=== PATIENT | male | born 1965 | race African-American/Black ===

== ENCOUNTER 2016-07-03 22:41 | Emergency (ER) | payer MEDICARE, OTHER ==
[~2016-07-03] VITALS: Ht 180.3 cm; Wt 135.0 kg
[~2016-07-03 22:41] MED LIST: DILA100C PO; METO50 PO; PHENO100 PO
[2016-07-03] MEDS ORDERED: SODIUM CHLOR 0.9% 1000 ML INJ 1,000 ML IV ONE (22:47)
[2016-07-03 22:48] VITALS: BP 159/91; PULSE 104; RESP 18; TEMP 98.1; O2SAT 96
[2016-07-03 22:54] VITALS: O2SAT 97
[2016-07-03] MEDS ORDERED: METOPROLOL TARTRATE (22:55)
[2016-07-03] MEDS ORDERED: DILANTIN (22:55)
[2016-07-03] MEDS ORDERED: LORazepam 2 MG/ML VIAL IVS ONE (23:00)
[2016-07-03] MEDS ORDERED: SODIUM CHLORIDE 0.9% FLUSH 5 ML FLUSH IVF PRN (23:00)
[2016-07-03 23:15] VITALS: BP 183/96; PULSE 101; RESP 20; O2SAT 97
[2016-07-03 23:28] LABS: AUTOMATED NEUTROPHIL # 4.9 TH/MM3 (1.8-7.7); BASOPHIL # 0.1 TH/MM3 (0-0.2); BASOPHIL % 0.7 % (0.0-2.0); EOSINOPHIL # 0.1 TH/MM3 (0-0.4); EOSINOPHIL % 0.9 % (0.0-4.0); HEMATOCRIT 42.1 % (39.0-51.0); HEMO FLAGS DIFF FINAL; LYMPH % 38.5 % (9.0-44.0); LYMPHOCYTE # 3.8 TH/MM3 (1.0-4.8); MEAN CELL VOLUME 76.2 FL (80.0-100.0); MEAN CORPUSCULAR HEMOGLOBIN 26.4 PG (27.0-34.0); MEAN CORPUSCULAR HGB CONC 34.6 % (32.0-36.0); MONO % 10.7 % (0.0-8.0); NEUT % 49.2 % (16.0-70.0); PLATELET COUNT 204 TH/MM3 (150-450); RED BLOOD COUNT 5.53 MIL/MM3 (4.50-5.90); RED CELL DISTRIBUTION WIDTH 14.5 % (11.6-17.2); WHITE BLOOD COUNT 9.9 TH/MM3 (4.0-11.0)
[2016-07-03 23:40] LABS: AMPHETAMINE, URINE NEG (NEG); BARBITURATES, URINE POS (NEG); COCAINE, URINE NEG (NEG)
[2016-07-03 23:48] LABS: ANION GAP 12 MEQ/L (5-15); BICARBONATE 20.6 MEQ/L (21.0-32.0); BLOOD UREA NITROGEN 10 MG/DL (7-18); CHLORIDE 102 MEQ/L (98-107); GLOMERULAR FILTRATION RATE 118 ML/MIN (>89); POTASSIUM 3.6 MEQ/L (3.5-5.1); SODIUM (NA) 135 MEQ/L (136-145)
--- NOTE | 2016-07-03 23:48 | RADRPT ---
EXAM DATE/TIME: 07/03/2016 23:39 [place] COMPARISON: CT BRAIN W/O CONTRAST, June 03, 2015, 21:11. INDICATIONS : Seizure. RADIATION DOSE: 50.30 CTDIvol (mGy) MEDICAL HISTORY : Hypertension. Seizures. SURGICAL HISTORY : None. ENCOUNTER: Initial ACUITY: 1 day PAIN SCALE: 0/10 LOCATION: cranial TECHNIQUE: Multiple contiguous axial images were obtained of the head. Using automated exposure control and adj ustment of the mA and/or kV according to patient size, radiation dose was kept as low as reasonably a chievable to obtain optimal diagnostic quality images. FINDINGS: CEREBRUM: The ventricles are normal. No evidence of midline shift, mass lesion, hemorrhage or acute infarction . No extra-axial fluid collections are seen. POSTERIOR FOSSA: The cerebellum and brainstem demonstrate no abnormality. The 4th ventricle is midline. The cerebell opontine angle is unremarkable. EXTRACRANIAL: Visualized sinuses are clear. SKULL: The calvaria is intact. No evidence of skull fracture. CONCLUSION: Stable noncontrast head CT. No acute finding is identified. Mann Pacheco MD on July 03, 2016 at 23:45 Board Certified Radiologist. This report was verified electronically.
[2016-07-04] MEDS ORDERED: FOSPHENYTOIN INJ 1,000 MGPE in SODIUM CHLORIDE 0.9% INJ 50 ML IV ONE (00:15)
[2016-07-04 00:55] VITALS: BP 172/74; PULSE 90; RESP 20; O2SAT 99
[2016-07-04 01:30] VITALS: BP 152/86; PULSE 102; RESP 20; O2SAT 95
--- NOTE | 2016-07-04 01:32 | PD ---
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 Patient here states that he bit his tongue and has history of seizure disorder. He denies specific complaints. He states he takes Dilantin and another medication and has been taking them like he should for his seizures. History is initially limited as patient can only give me basic details. PFSH Past Medical History Hx Anticoagulant Therapy: No Blood Disorders: No Cardiovascular Problems: No Chemotherapy: No Cerebrovascular Accident: No Diabetes: No Diminished Hearing: No Hypertension: Yes Respiratory: No Seizures: Yes Influenza Vaccination: No Past Surgical History Surgical History: No Previous Surgery Social History Alcohol Use: No Tobacco Use: No Substance Use: No Allergies-Medications (Allergen,Severity, Reaction): Coded Allergies: No Known Allergies (Verified , 07/03/16) Reported Meds & Prescriptions Reported Meds & Active Scripts Active Reported [Metoprolol Tartrate ] [Dilantin] Review of Systems ROS Limitations: Poor Historian Except as stated in HPI: all other systems reviewed are Neg Physical Exam Narrative GENERAL: Well-nourished, well-developed patient. SKIN: Warm and dry. HEAD: Normocephalic and hematoma noted to forehead EYES: No injection or drainage. ENT: No nasal drainage noted. Simple small laceration noted to right side of tongue NECK: Supple, trachea midline. Nontender in midline CARDIOVASCULAR: Regular rate and rhythm RESPIRATORY: Breath sounds equal bilaterally. No accessory muscle use. GASTROINTESTINAL: Abdomen soft, non-tender, nondistended. EXTREMITIES: No specific joint pain NEUROLOGICAL: Awake and alert to name. Motor and sensory grossly within normal limits. Normal speech. Data Data Last Documented VS Vital Signs Date Time Temp Pulse Resp B/P Pulse Ox O2 Delivery O2 Flow Rate FiO2 07/04/16 02:17 100 20 143/80 93 07/04/16 00:55 Nasal Cannula 07/03/16 23:15 3 07/03/16 22:48 98.1 Orders Complete Blood Count With Diff (07/03/16 22:47) Basic Metabolic Panel (Bmp) (07/03/16 22:47) Alcohol (Ethanol) (07/03/16 22:47) Phenytoin (Dilantin) (07/03/16 22:47) Drug Screen, Random Urine (07/03/16 22:47) Ct Brain W/O Iv Contrast(Rout) (07/03/16 ) Blood Glucose (07/03/16 22:47) Ecg Monitoring (07/03/16 22:47) Iv Access Insert/Monitor (07/03/16 22:47) Oximetry (07/03/16 22:47) Sodium Chlor 0.9% 1000 Ml Inj (Ns 1000 M (07/03/16 22:47) Sodium Chloride 0.9% Flush (Ns Flush) (07/03/16 23:00) Lorazepam Inj (Ativan Inj) (07/03/16 23:00) Phenobarbital (07/03/16 23:58) Fosphenytoin Inj (Cerebyx Inj) (07/04/16 00:15) Labs Laboratory Tests Test 07/03/16 23:20 White Blood Count 9.9 TH/MM3 Red Blood Count 5.53 MIL/MM3 Hemoglobin 14.6 GM/DL Hematocrit 42.1 % Mean Corpuscular Volume 76.2 FL Mean Corpuscular Hemoglobin 26.4 PG Mean Corpuscular Hemoglobin 34.6 % Concent Red Cell Distribution Width 14.5 % Platelet Count 204 TH/MM3 Mean Platelet Volume 8.2 FL Neutrophils (%) (Auto) 49.2 % Lymphocytes (%) (Auto) 38.5 % Monocytes (%) (Auto) 10.7 % Eosinophils (%) (Auto) 0.9 % Basophils (%) (Auto) 0.7 % Neutrophils # (Auto) 4.9 TH/MM3 Lymphocytes # (Auto) 3.8 TH/MM3 Monocytes # (Auto) 1.1 TH/MM3 Eosinophils # (Auto) 0.1 TH/MM3 Basophils # (Auto) 0.1 TH/MM3 CBC Comment DIFF FINAL Differential Comment Sodium Level 135 MEQ/L Potassium Level 3.6 MEQ/L Chloride Level 102 MEQ/L Carbon Dioxide Level 20.6 MEQ/L Anion Gap 12 MEQ/L Blood Urea Nitrogen 10 MG/DL Creatinine 0.84 MG/DL Estimat Glomerular Filtration 118 ML/MIN Rate Random Glucose 109 MG/DL Calcium Level 8.3 MG/DL Urine Opiates Screen NEG Urine Barbiturates Screen POS Phenytoin (Dilantin) Level 3.8 MCG/ML Urine Amphetamines Screen NEG Urine Benzodiazepines Screen NEG Urine Cocaine Screen NEG Urine Cannabinoids Screen NEG Ethyl Alcohol Level LESS THAN 3 MG/DL Phenobarbital Level 14.9 MCG/ML MDM Medical Decision Making Medical Screen Exam Complete: Yes Emergency Medical Condition: Yes Medical Record Reviewed: Yes (past history confirmed) Interpretation(s) CBC & BMP Diagram 07/03/16 23:20 Dilantin level is low ct brain no acute Differential Diagnosis Subtherapeutic seizure medication, hyponatremia, intercranial, hypoglycemia Narrative Course Will check blood work, CT brain and reevaluate after one of Ativan to decrease seizure threshold Cerebyx level is low will dose with 1 g of Cerebyx and monitor 0013 before patient could get Cerebyx he had a generalized tonic-clonic seizure here no seizure here after loaded with cerebyx, Patient denies any new complaints and states that they are feeling better, all questions answered. Patient knows that follow up is incumbent on them and to return to the emergency room immediately if new or worsening symptoms develop. Patient given strict return precautions, vitals reviewed and are normal, agrees to further workup as an outpatient. Diagnosis Primary Impression: Seizure Referrals: Neurologist call for appointment tuesday Patient Instructions: General Instructions Additional Instructions: take your seizure medication as directed, your seizure levels were low and you were given extra in the ER, return as needed Med/Other Pt SpecificInfo: No Change to Meds Disposition: 01 DISCHARGE HOME Condition: Stable Lian Salinas MD Jul 04, 2016 01:32
[2016-07-04 02:17] VITALS: BP 143/80
== END 2016-07-04 04:37 | disposition home or self-care (01) ==
LOC: NEPC 22:41
DX: G40.909 Epilepsy, unspecified, not intractable, without status epilepticus (principal); I10 Essential (primary) hypertension
CPT/HCPCS: 70450; 80048; 80184; 80185; 80307; 80320; 85025; 96361; 96365; 96375; 99284; J2060; J7030; Q2009

== ENCOUNTER 2016-07-18 11:22 | Inpatient (IN) | payer MEDICARE, OTHER ==
[~2016-07-18] VITALS: Ht 172.7 cm; Wt 138.1 kg
[~2016-07-18 11:22] MED LIST changes: -DILA100C PO; +DILANTIN; -METO50 PO; +METOPROLOL TARTRATE; -PHENO100 PO
[2016-07-18 11:27] VITALS: BP 143/85; PULSE 95; RESP 18; TEMP 98.7; O2SAT 93
[2016-07-18] MEDS ORDERED: DILANTIN (11:32)
[2016-07-18] MEDS ORDERED: METOPROLOL TARTRATE (11:32)
[2016-07-18] MEDS ORDERED: SODIUM CHLOR 0.9% 1000 ML INJ 1,000 ML IV ONE (11:44)
[2016-07-18] MEDS ORDERED: SODIUM CHLORIDE 0.9% FLUSH 5 ML FLUSH IVF PRN ×2 (11:45→14:30)
[2016-07-18 11:46] VITALS: O2SAT 95
--- NOTE | 2016-07-18 11:53 | PD ---
HPI Chief Complaint: Seizure Time Seen by Provider: 11:38 Travel History International Travel<30 days: No Contact w/Intl Traveler<30days: No Traveled to known affect area: No History of Present Illness HPI Patient is a 50-year-old male with history of grand mal seizures currently taking Dilantin for seizures, presents to emergency room after he had a witnessed seizure at [employer] today. EMS unsure how long seizure lasted or whether patient had any trauma to his head. Patient was post ictal prior on route to the emergency room, patient reports that he has been compliant with his medications. Patient reports that he last had a seizure about 3-4 months ago and last saw his neurologist about 5 months ago. Patient reports that when he last saw his neurologist, there is no medication changes. Patient reports that he feels fine now, denies headache or dizziness at this time. Patient denies chest pain or shortness of breath. Patient with no complaints. PFSH Past Medical History Hx Anticoagulant Therapy: No Blood Disorders: No Cardiovascular Problems: No Chemotherapy: No Cerebrovascular Accident: No Diabetes: No Diminished Hearing: No Hypertension: Yes Respiratory: No Seizures: Yes Influenza Vaccination: No Past Surgical History Surgical History: No Previous Surgery Family History Family History: Negative Social History Alcohol Use: No Tobacco Use: No Substance Use: No Allergies-Medications (Allergen,Severity, Reaction): Coded Allergies: No Known Allergies (Verified , 07/18/16) Reported Meds & Prescriptions Reported Meds & Active Scripts Active Reported [Metoprolol Tartrate ] [Dilantin] Review of Systems General / Constitutional: No: Fever Eyes: No: Visual changes HENT: No: Headaches Cardiovascular: No: Chest Pain or Discomfort Respiratory: No: Shortness of Breath Gastrointestinal: No: Abdominal Pain Genitourinary: No: Dysuria Musculoskeletal: No: Pain Skin: No Rash Neurologic: Positive: Seizures, No: Weakness Psychiatric: No: Depression Endocrine: No: Polydipsia Hematologic/Lymphatic: No: Easy Bruising Physical Exam Narrative GENERAL: No acute distress, nontoxic SKIN: Warm and dry. HEAD: Atraumatic. Normocephalic. EYES: Pupils equal and round. No scleral icterus. No injection or drainage. ENT: No nasal bleeding or discharge. Mucous membranes pink and moist. NECK: Trachea midline. No JVD. CARDIOVASCULAR: Regular rate and rhythm. No murmur appreciated. RESPIRATORY: No accessory muscle use. Clear to auscultation. Breath sounds equal bilaterally. GASTROINTESTINAL: Abdomen soft, non-tender, nondistended. Hepatic and splenic margins not palpable. MUSCULOSKELETAL: No obvious deformities. No clubbing. No cyanosis. No edema. NEUROLOGICAL: Awake and alert. No obvious cranial nerve deficits. Motor grossly within normal limits. Normal speech. Cranial nerves to 12 grossly intact without any obvious neurological deficits PSYCHIATRIC: Appropriate mood and affect; insight and judgment normal. Data Data Last Documented VS Vital Signs Date Time Temp Pulse Resp B/P Pulse Ox O2 Delivery O2 Flow Rate FiO2 07/18/16 13:13 100 16 144/88 100 Partial Rebreather 07/18/16 13:12 15 07/18/16 11:27 98.7 Orders Electrocardiogram (07/18/16 ) Complete Blood Count With Diff (07/18/16 11:44) Phenytoin (Dilantin) (07/18/16 11:44) Drug Screen, Random Urine (07/18/16 11:44) Ecg Monitoring (07/18/16 11:44) Iv Access Insert/Monitor (07/18/16 11:44) Oximetry (07/18/16 11:44) Comprehensive Metabolic Panel (07/18/16 11:44) Sodium Chlor 0.9% 1000 Ml Inj (Ns 1000 M (07/18/16 11:44) Sodium Chloride 0.9% Flush (Ns Flush) (07/18/16 11:45) Ua Includes Microscopic (07/18/16 11:44) Phenytoin Inj (Dilantin Inj) (07/18/16 12:45) Lorazepam Inj (Ativan Inj) (07/18/16 12:58) Lorazepam Inj (Ativan Inj) (07/18/16 13:15) Labs Laboratory Tests Test 07/18/16 07/18/16 11:49 12:37 White Blood Count 7.8 TH/MM3 Red Blood Count 5.40 MIL/MM3 Hemoglobin 14.2 GM/DL Hematocrit 40.7 % Mean Corpuscular Volume 75.3 FL Mean Corpuscular Hemoglobin 26.3 PG Mean Corpuscular Hemoglobin 34.9 % Concent Red Cell Distribution Width 14.5 % Platelet Count 188 TH/MM3 Mean Platelet Volume 7.8 FL Neutrophils (%) (Auto) 70.2 % Lymphocytes (%) (Auto) 18.4 % Monocytes (%) (Auto) 8.6 % Eosinophils (%) (Auto) 2.2 % Basophils (%) (Auto) 0.6 % Neutrophils # (Auto) 5.5 TH/MM3 Lymphocytes # (Auto) 1.4 TH/MM3 Monocytes # (Auto) 0.7 TH/MM3 Eosinophils # (Auto) 0.2 TH/MM3 Basophils # (Auto) 0.0 TH/MM3 CBC Comment DIFF FINAL Differential Comment Sodium Level 138 MEQ/L Potassium Level 3.4 MEQ/L Chloride Level 104 MEQ/L Carbon Dioxide Level 20.6 MEQ/L Anion Gap 13 MEQ/L Blood Urea Nitrogen 9 MG/DL Creatinine 0.91 MG/DL Estimat Glomerular Filtration 108 ML/MIN Rate Random Glucose 113 MG/DL Calcium Level 8.3 MG/DL Total Bilirubin 0.3 MG/DL Aspartate Amino Transf 35 U/L (AST/SGOT) Alanine Aminotransferase 37 U/L (ALT/SGPT) Alkaline Phosphatase 138 U/L Total Protein 8.9 GM/DL Albumin 3.4 GM/DL Phenytoin (Dilantin) Level 5.8 MCG/ML Urine Color LIGHT-YELLOW Urine Turbidity CLEAR Urine pH 6.5 Urine Specific [place] 1.011 Urine Protein 30 mg/dL Urine Glucose (UA) NEG mg/dL Urine Ketones NEG mg/dL Urine Occult Blood TRACE Urine Nitrite NEG Urine Bilirubin NEG Urine Urobilinogen LESS THAN 2.0 MG/DL Urine Leukocyte Esterase NEG Urine RBC LESS THAN 1 /hpf Urine WBC LESS THAN 1 /hpf Urine Squamous Epithelial <1 /hpf Cells Urine Transitional Epithelial <1 /hpf Cells Urine Mucus FEW /lpf MDM Medical Decision Making Medical Screen Exam Complete: Yes Emergency Medical Condition: Yes Interpretation(s) EKG at 1136: Normal sinus rhythm at 80 beats for minute, QT/QTC 365/411, nonspecific T-wave changes Vital Signs Date Time Temp Pulse Resp B/P Pulse Ox O2 Delivery O2 Flow Rate FiO2 07/18/16 11:27 98.7 95 18 143/85 93 Differential Diagnosis Recurrent seizures, medication noncompliance, electrolyte abnormalities, ACS, arrhythmia Narrative Course Patient is a 50-year-old male with history of grand mal seizures, presents to emergency room with complaints of recurrent seizures. Patient is currently on Dilantin for seizures, reports last seizure was 3-4 months ago. Patient currently with no complaints, had a witnessed seizure while at [employer] today. Plan to monitor patient, obtain labs and Dilantin level. 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 Patient does have history of medication noncompliance, if the dilantin level is low, we will bolus him with Dilantin. Was called to room as patient began to have a grand mal seizure, seizure lasted for less than 1 minute, 2mg of IV ativan given to patient, patient postictal. patient with second seizure today, will require observation case reviewed with dr loya who accepts pt to service Diagnosis Primary Impression: Recurrent seizures Admitting Information Admitting Physician Requests: Observation Macie Hidalgo DO Jul 18, 2016 11:53
[2016-07-18 12:01] LABS: AUTOMATED NEUTROPHIL # 5.5 TH/MM3 (1.8-7.7); BASOPHIL % 0.6 % (0.0-2.0); EOSINOPHIL # 0.2 TH/MM3 (0-0.4); EOSINOPHIL % 2.2 % (0.0-4.0); HEMATOCRIT 40.7 % (39.0-51.0); HEMO FLAGS DIFF FINAL; LYMPH % 18.4 % (9.0-44.0); LYMPHOCYTE # 1.4 TH/MM3 (1.0-4.8); MEAN CELL VOLUME 75.3 FL (80.0-100.0); MEAN CORPUSCULAR HEMOGLOBIN 26.3 PG (27.0-34.0); MEAN CORPUSCULAR HGB CONC 34.9 % (32.0-36.0); MONO % 8.6 % (0.0-8.0); NEUT % 70.2 % (16.0-70.0); PLATELET COUNT 188 TH/MM3 (150-450); RED CELL DISTRIBUTION WIDTH 14.5 % (11.6-17.2); WHITE BLOOD COUNT 7.8 TH/MM3 (4.0-11.0)
[2016-07-18 12:17] LABS: ALT (GPT) 37 U/L (12-78); ANION GAP 13 MEQ/L (5-15); AST (GOT) 35 U/L (15-37); BICARBONATE 20.6 MEQ/L (21.0-32.0); BLOOD UREA NITROGEN 9 MG/DL (7-18); CHLORIDE 104 MEQ/L (98-107); GLOMERULAR FILTRATION RATE 108 ML/MIN (>89); POTASSIUM 3.4 MEQ/L (3.5-5.1); SODIUM (NA) 138 MEQ/L (136-145)
[2016-07-18 12:20] LABS: ALKALINE PHOSPHATASE 138 U/L (45-117); TOTAL BILIRUBIN ADULT 0.3 MG/DL (0.2-1.0)
[2016-07-18] MEDS ORDERED: PHENYTOIN INJ 1,000 MG in SODIUM CHLORIDE 0.9% INJ 100 ML IV ONE (12:45)
[2016-07-18 12:54] LABS: BLOOD, URINE TRACE (NEG); GLUCOSE,URINE NEG (NEG); KETONE, URINE NEG (NEG); MUCUS URINE FEW /lpf (OCC); NITRITE,URINE NEG (NEG); PH, URINE 6.5 (5.0-8.5); SQUAMOUS EPITHELIAL CELL URINE <1 /hpf (0-5); TRANSITIONAL EPI CELLS, URINE <1 /hpf; URINE COLOR LIGHT-YELLOW (YELLW/STRAW)
[2016-07-18] MEDS ORDERED: LORazepam 2 MG/ML VIAL ONE (12:58)
[2016-07-18 13:13] VITALS: BP 144/88; PULSE 100; RESP 16; O2SAT 100
[2016-07-18] MEDS ORDERED: LORazepam 2 MG/ML VIAL IV PUSH ONE (13:15)
[2016-07-18 14:28] LABS: AMPHETAMINE, URINE NEG (NEG); BARBITURATES, URINE POS (NEG); COCAINE, URINE NEG (NEG)
[2016-07-18] MEDS ORDERED: LORazepam 2 MG/ML VIAL IV PRN (14:30)
[2016-07-18] MEDS ORDERED: ACETAMINOPHEN 325 MG TAB PO PRN (14:30)
--- NOTE | 2016-07-18 14:55 | HHI.HP ---
[facility] Primary Care Physician No Primary Care Physician Admission Diagnosis Recurrent Seizure Diagnoses: Chief Complaint: recurrent seizure Travel History International Travel<30 Days: No Contact w/Intl Traveler <30 Da: No Traveled to Known Affected Are: No History of Present Illness 50-year-old male with PMH of hypertension, grand mal seizures on Dilantin/ Phenobarbital, and hx of status epilepticus requiring intubation, presents to the ER after a witnessed seizure while at [employer] today 07/18. It is unknown how long the seizure lasted. The patient was post ictal en route to the ER however AAOx4 upon arrival. He reports urinary incontinence and tongue biting. He last visited the ER on 07/03/16 for seizure x2, head CT was unremarkable at that time, he was loaded with IV Cerebyx and discharged home. The patient reports compliance with his Dilantin however upon arrival Dilantin level subtherapeutic at 5.8. He does admit to running out of his Phenobarbital 2-3 days ago; states a prescription was called in but he has not picked it up yet. He last saw his neurologist 5months ago, he is unsure who his neurologist is (female, located on [facility]). The patient was initially feeling back to normal in the ER however then had another grand mal seizure witnessed by ER MD, lasted less than 1 minute, s/p 2mg IV Ativan. The patient is again post ictal, drowsy, falls asleep throughout exam however is oriented to person, place, and states the date is 07/16/16. With intractable seizures and subtherapeutic levels, ER MD requested admission. The patient denies any recent fevers/chills, headaches, lightheadedness, dizziness, chest pains, palpitations, shortness of breath, abdominal or urinary complaints. Review of Systems Constitutional: DENIES: Diaphoretic episodes, Fever, Chills, Dizziness Endocrine: DENIES: Polydipsia, Polyuria, Polyphagia Eyes: DENIES: Blurred vision, Vision loss, Double Vision Ears, nose, mouth, throat: DENIES: Throat pain, Hoarseness, Odynophagia Respiratory: DENIES: Cough, Shortness of breath Cardiovascular: DENIES: Chest pain, Palpitations, Dyspnea on Exertion Gastrointestinal: DENIES: Abdominal pain, Diarrhea, Nausea, Vomiting Genitourinary: COMPLAINS OF: Urinary incontinence, DENIES: Urgency, Dysuria Musculoskeletal: DENIES: Back pain, Neck pain Integumentary: DENIES: Pruritus, Rash Hematologic/lymphatic: DENIES: Bruising, Lymphadenopathy Immunologic/allergic: DENIES: Eczema, Urticaria Neurologic: COMPLAINS OF: Seizures, DENIES: Abnormal gait, Headache, Localized weakness, Paresthesias Psychiatric: DENIES: Anxiety, Depression Past Family Social History Past Medical History hypertension grand mal seizures hx of status epilepticus requiring intubation Past Surgical History Denies any prior surgeries. Reported Medications Metoprolol (unknown dose) Dilantin (patient believes 100mg bid) Phenobarbital (patient also believes this is 100mg bid) Asked RN to update med rec prior to restarting home meds. Allergies: Coded Allergies: No Known Allergies (Verified , 07/18/16) Active Ordered Medications Current Medications Medications (Trade) Dose Ordered Sig/Noni Route Start Time Stop Time Status Last Admin (NS Flush) 2 ml UNSCH PRN IVF 07/18/16 14:30 (NS Flush) 2 ml BID IVF 07/18/16 21:00 (Ativan Inj) 2 mg Q10M PRN IV 07/18/16 14:30 (Tylenol) 650 mg Q4H PRN PO 07/18/16 14:30 Phenytoin Sodium 100 mg 100 mg Q8HR IV 07/18/16 22:00 (KCl 20 Meq Premix Inj) 100 ml @ 50 mls/hr BOLUS ONCE IV 07/18/16 15:00 07/18/16 16:59 07/18/16 15:04 (Luminal Inj) 130 mg ONCE ONCE IM 07/18/16 15:30 07/18/16 15:31 UNV Family History Both parents are , unknown medical problems Denies any family history of seizures Social History Smoked tobacco 1PPD for 10+ years, quit in his late 30s Denies any alcohol or illicit drug use Physical Exam Vital Signs Vital Signs Date Time Temp Pulse Resp B/P Pulse Ox O2 Delivery O2 Flow Rate FiO2 07/18/16 13:13 100 16 144/88 100 Partial Rebreather 07/18/16 13:12 100 Non-Rebreather 15 07/18/16 11:46 95 Nasal Cannula 2 07/18/16 11:27 98.7 95 18 143/85 93 Physical Exam GENERAL: Well-nourished, well-developed obese AA male patient in NAD. Drowsy, however easily awakens to voice, is AAOx4. SKIN: Warm and dry. No rash. HEAD: Normocephalic. Atraumatic. EYES: Pupils equal and round. No scleral icterus. No injection or drainage. ENT: No nasal bleeding or discharge. Mucous membranes pink and moist. Tongue with bite eduardo/abrasion/ecchymosis on both sides, no active bleeding. NECK: Supple. Trachea midline. CARDIOVASCULAR: Regular rate and rhythm. S1, S2 noted. No murmur appreciated. RESPIRATORY: No accessory muscle use. Clear to auscultation. Breath sounds equal bilaterally. GASTROINTESTINAL: Abdomen soft, non-tender, nondistended. Normoactive bowel sounds x4. MUSCULOSKELETAL: No obvious deformities. Extremities without clubbing, cyanosis , or edema. NEUROLOGICAL: Awake and alert. No obvious cranial nerve deficits. Motor grossly within normal limits. Moves all extremities spontaneously. Normal speech. PSYCHIATRIC: Appropriate mood and affect; insight and judgment normal. Laboratory Laboratory Tests Test 07/18/16 07/18/16 11:49 12:37 White Blood Count 7.8 Red Blood Count 5.40 Hemoglobin 14.2 Hematocrit 40.7 Mean Corpuscular Volume 75.3 Mean Corpuscular Hemoglobin 26.3 Mean Corpuscular Hemoglobin 34.9 Concent Red Cell Distribution Width 14.5 Platelet Count 188 Mean Platelet Volume 7.8 Neutrophils (%) (Auto) 70.2 Lymphocytes (%) (Auto) 18.4 Monocytes (%) (Auto) 8.6 Eosinophils (%) (Auto) 2.2 Basophils (%) (Auto) 0.6 Neutrophils # (Auto) 5.5 Lymphocytes # (Auto) 1.4 Monocytes # (Auto) 0.7 Eosinophils # (Auto) 0.2 Basophils # (Auto) 0.0 CBC Comment DIFF FINAL Differential Comment Sodium Level 138 Potassium Level 3.4 Chloride Level 104 Carbon Dioxide Level 20.6 Anion Gap 13 Blood Urea Nitrogen 9 Creatinine 0.91 Estimat Glomerular Filtration 108 Rate Random Glucose 113 Calcium Level 8.3 Total Bilirubin 0.3 Aspartate Amino Transf 35 (AST/SGOT) Alanine Aminotransferase 37 (ALT/SGPT) Alkaline Phosphatase 138 Total Protein 8.9 Albumin 3.4 Phenytoin (Dilantin) Level 5.8 Urine Color LIGHT-YELLOW Urine Turbidity CLEAR Urine pH 6.5 Urine Specific [place] 1.011 Urine Protein 30 Urine Glucose (UA) NEG Urine Ketones NEG Urine Occult Blood TRACE Urine Nitrite NEG Urine Bilirubin NEG Urine Urobilinogen LESS THAN 2.0 Urine Leukocyte Esterase NEG Urine RBC LESS THAN 1 Urine WBC LESS THAN 1 Urine Squamous Epithelial <1 Cells Urine Transitional Epithelial <1 Cells Urine Mucus FEW Urine Opiates Screen NEG Urine Barbiturates Screen POS Urine Amphetamines Screen NEG Urine Benzodiazepines Screen NEG Urine Cocaine Screen NEG Urine Cannabinoids Screen NEG Result Diagram: 07/18/16 1149 07/18/16 1149 Imaging 07/03/16 - Head CT images reviewed, unremarkable. Assessment and Plan Problem List: (1) Recurrent seizures ICD Code: G40.909 Status: Acute Assessment and Plan 50-year-old male with PMH of hypertension, grand mal seizures on Dilantin/ Phenobarbital, and hx of status epilepticus requiring intubation, presents to the ER after a witnessed seizure while at [employer] today 07/18 and again another grand mal seizure witnessed in the ER. Recurrent Grand Mal Seizures: Failed Outpatient, seen in the ER 07/03/16 for seizure x2, loaded with IV Cerebyx, Head CT unremarkable at that time, he was discharged home. Recurrent seizure likely secondary to subtherapeutic Dilantin level 5.8 and ran out of phenobarbital 2-3days ago. Started on IV Dilantin 100mg q8h. Loaded with phenobarbital 130mg IM x1. IV Ativan 2mg prn seizure. Seizure precautions. Repeat dilantin and phenobarbital level in the am. Outpatient f/up with neurologist. Hypertension: chronic, on metoprolol however dose unknown, asked RN to update med rec. Monitor BP, adjust antihypertensives as needed. Hypokalemia: K 3.4, given IV KCl 20meq replacement. Check mag. Repeat BMP tomorrow. DVT Prophylaxis: teds/SCDs Written by Deyanira Zaldivar, acting as scribe for Dr. Gardner on 07/18/16 at 15: 25. The documentation accurately reflects the work performed [id number] by me on at 15:25 Code Status Full Code Discussed Condition With Patient, ER Deyanira Ortiz PA-C Jul 18, 2016 14:55 Minh Gardner MD Jul 18, 2016 18:32
[2016-07-18] MEDS ORDERED: POTASSIUM CHLOR 20 MEQ PREMIX 100 ML IV ONE (15:00)
[2016-07-18] MEDS ORDERED: METO50TA PO (15:30)
[2016-07-18] MEDS ORDERED: DILA100C PO (15:30)
[2016-07-18] MEDS ORDERED: PHENO60 PO (15:30)
[2016-07-18] MEDS ORDERED: PHENobarbital SOD 130 MG/ML VIAL IM ONE (15:30)
[2016-07-18 16:36] VITALS: BP 118/65; PULSE 74; RESP 20; O2SAT 100
[2016-07-18 17:00] VITALS: BP_SYST 133; BP_SYST 171; BP_DIAS 115; BP_DIAS 84; PULSE 86; PULSE 88; RESP 18; TEMP 98.7; TEMP 99; O2SAT 98
[2016-07-18] MEDS ORDERED: MAGNESIUM SULFATE 1 GM PREMIX 100 ML IV ONE (18:00)
[2016-07-18] MEDS ORDERED: PILL SPLITTER OTHER PRN (18:15)
[2016-07-18 20:00] VITALS: BP 188/89; PULSE 86; RESP 22; TEMP 98.3; O2SAT 96
[2016-07-18] MEDS: METOPROLOL TARTRATE 50 MG TAB PO SCH (20:03)
[2016-07-18] MEDS ORDERED: SODIUM CHLORIDE 0.9% FLUSH 5 ML FLUSH IVF SCH (21:00)
[2016-07-18] MEDS: PHENYTOIN INJ 100 MG/2 ML VIAL IV SCH (22:20)
[2016-07-19] VITALS: BP_SYST 125; BP_SYST 140; BP_DIAS 60; BP_DIAS 65; PULSE 72; PULSE 87; RESP 20; TEMP 100.3; TEMP 96; O2SAT 94; O2SAT 98
[2016-07-19 04:00] VITALS: BP 153/86; PULSE 78; RESP 20; TEMP 98.8; O2SAT 95
[2016-07-19] MEDS: PHENYTOIN INJ 100 MG/2 ML VIAL IV SCH ×2 (05:49→13:47)
[2016-07-19 07:00] VITALS: PULSE 75
[2016-07-19 08:00] VITALS: BP 122/77; PULSE 71; RESP 19; TEMP 98.6; O2SAT 97
[2016-07-19 08:18] LABS: ALKALINE PHOSPHATASE 128 U/L (45-117); ALT (GPT) 32 U/L (12-78); ANION GAP 8 MEQ/L (5-15); AST (GOT) 33 U/L (15-37); BICARBONATE 24.8 MEQ/L (21.0-32.0); BLOOD UREA NITROGEN 5 MG/DL (7-18); CHLORIDE 104 MEQ/L (98-107); GLOMERULAR FILTRATION RATE 156 ML/MIN (>89); PHENOBARBITAL 9.3 MCG/ML (15.0-40.0); POTASSIUM 3.3 MEQ/L (3.5-5.1); SODIUM (NA) 137 MEQ/L (136-145); TOTAL BILIRUBIN ADULT 0.6 MG/DL (0.2-1.0)
[2016-07-19] MEDS: METOPROLOL TARTRATE 50 MG TAB PO SCH (09:59)
[2016-07-19 12:00] VITALS: BP 112/56; PULSE 72; RESP 21; TEMP 97.7; O2SAT 95
[2016-07-19] MEDS ORDERED: PHENobarbital SOD 130 MG/ML VIAL IM ONE (13:28)
[2016-07-19] MEDS ORDERED: POTASSIUM CHLORIDE 10 MEQ CONTROLLED RELEASE TAB PO ONE (13:30)
--- NOTE | 2016-07-19 13:31 | HHI.DS ---
Discharge Summary Admission Date Jul 18, 2016 at 14:43 Discharge Date: Jul 19, 2016 Admitting Diagnosis Recurrent Seizure (1) Recurrent seizures ICD Code: G40.909 Diagnosis: Principal Procedures none Brief History - From Admission 50-year-old male with PMH of hypertension, grand mal seizures on Dilantin/ Phenobarbital, and hx of status epilepticus requiring intubation, presents to the ER after a witnessed seizure while at [facility] today 07/18. It is unknown how long the seizure lasted. The patient was post ictal en route to the ER however AAOx4 upon arrival. He reports urinary incontinence and tongue biting. He last visited the ER on 07/03/16 for seizure x2, head CT was unremarkable at that time, he was loaded with IV Cerebyx and discharged home. The patient reports compliance with his Dilantin however upon arrival Dilantin level subtherapeutic at 5.8. He does admit to running out of his Phenobarbital 2-3 days ago; states a prescription was called in but he has not picked it up yet. He last saw his neurologist 5months ago, he is unsure who his neurologist is (female, located on [facility]). The patient was initially feeling back to normal in the ER however then had another grand mal seizure witnessed by ER MD, lasted less than 1 minute, s/p 2mg IV Ativan. The patient is again post ictal, drowsy, falls asleep throughout exam however is oriented to person, place, and states the date is 07/16/16. With intractable seizures and subtherapeutic levels, ER MD requested admission. The patient denies any recent fevers/chills, headaches, lightheadedness, dizziness, chest pains, palpitations, shortness of breath, abdominal or urinary complaints. CBC/BMP: 07/18/16 1149 07/19/16 0718 Significant Findings Laboratory Tests Test 07/18/16 07/18/16 07/19/16 11:49 12:37 07:18 Mean Corpuscular Volume 75.3 FL (80.0-100.0) Mean Corpuscular Hemoglobin 26.3 PG (27.0-34.0) Neutrophils (%) (Auto) 70.2 % (16.0-70.0) Monocytes (%) (Auto) 8.6 % (0.0-8.0) Potassium Level 3.4 MEQ/L 3.3 MEQ/L (3.5-5.1) (3.5-5.1) Carbon Dioxide Level 20.6 MEQ/L (21.0-32.0) Random Glucose 113 MG/DL (74-106) Calcium Level 8.3 MG/DL 8.4 MG/DL (8.5-10.1) (8.5-10.1) Alkaline Phosphatase 138 U/L 128 U/L (45-117) (45-117) Total Protein 8.9 GM/DL 8.5 GM/DL (6.4-8.2) (6.4-8.2) Phenytoin (Dilantin) Level 5.8 MCG/ML (10.0-20.0) Urine Protein 30 mg/dL (NEG-TRACE) Urine Occult Blood TRACE (NEG) Urine Mucus FEW /lpf (OCC) Urine Barbiturates Screen POS (NEG) Blood Urea Nitrogen 5 MG/DL (7-18) Albumin 3.1 GM/DL (3.4-5.0) Phenobarbital Level 9.3 MCG/ML (15.0-40.0) PE at Discharge Not in distress, well-nourished, looks stated age PERRL, pink conjunctiva without injection, anicteric Nose without bleeding, airway patent, oropharynx clear Supple neck, no masses or thyromegaly, trachea midline Normal rate and regular rhythm, no murmurs gallops or rubs appreciated. Clear to auscultation and symmetric bilaterally, normal respiratory effort. Normal bowel sounds, soft, obese, non-tender, nondistended, no guarding. Extremities without clubbing, cyanosis, or edema. No rash of generalized distribution. Skin is warm and dry. AAO x3, no cranial nerve deficits, moves all 4 extremities, no focal neurologic deficits, no meningeal signs. Normal mood, appropriate affect Pt update on day of discharge No overnight events, no seizure episodes, low-grade temperature elevation but no fever. No cough, chills, urinary symptoms or diarrhea. No neck pain or headache. he wants to go home. He still says now that he is more lucid that he hasn't taken his phenobarbital for several days because he ran out of it. Hospital Course 50-year-old male with PMH of hypertension, grand mal seizures on Dilantin/ Phenobarbital, and hx of status epilepticus requiring intubation, presents to the ER after a witnessed seizure while at [facility] today 07/18 and again another grand mal seizure witnessed in the ER. Patient was loaded with Cerebyx and phenobarbital. He was restarted on his home dose of Dilantin and phenobarbital. No further seizure episodes. Seizure secondary to noncompliance , patient hasn't had his phenobarbital for 3 days because he ran out of it. Patient otherwise is stable. After loading with phenobarbital, patient's levels are still low, will give another loading dose prior to discharge. Dilantin level is therapeutic. He will be discharged on his home dose of antiseizure medications to follow-up with his primary care physician in one week. Pt Condition on Discharge: Good Discharge Disposition: Discharge Home Discharge Time: <= 30 minutes Discharge Instructions DIET: Follow Instructions for: As Tolerated, No Restrictions Activities you can perform: Regular-No Restrictions Follow up Referrals: PCP Follow-up - 1 Week Continued Medications: Metoprolol Tartrate (Metoprolol Tartrate) 50 Mg Tab 50 MG PO BID #60 Ref 0 TAB Phenobarbital (Phenobarbital) 64.8 Mg Tab 97.2 MG PO Q8HR Control Seizures #60 Ref 0 TAB Phenytoin Extended (Dilantin) 100 Mg Cap 100 MG PO Q8HR #90 Ref 0 CAP Minh Gardner MD Jul 19, 2016 13:30
--- NOTE | 2016-07-19 14:39 | EKG ---
Date Performed: 07/18/2016 Time Performed: 11:36:25 PTAGE: 50 years EKG: Sinus rhythm POSSIBLE RIGHT VENTRICULAR CONDUCTION DELAY NONSPECIFIC T-WAVE ABNORMALITY BORDERLINE ECG PREVIOUS TRACING : 06/03/2015 21.20 DOCTOR: Arben Sanchez Interpretating Date/Time 07/19/2016 14:33:38
== END 2016-07-19 16:10 | disposition home or self-care (01) | DRG 101 ==
LOC: NEPA 11:22 → NEDA 14:30 → OBSVTOIN 14:43 → N05A 17:06
PROVIDERS: ADMIT Hospitalist; ATTEND Hospitalist
DX: G40.419 Other generalized epilepsy and epileptic syndromes, intractable, without status epilepticus (principal); Z68.41 Body mass index [BMI] 40.0-44.9, adult; Z91.14 Patient's other noncompliance with medication regimen; E66.9 Obesity, unspecified; I10 Essential (primary) hypertension; E87.6 Hypokalemia; Z87.891 Personal history of nicotine dependence
CPT/HCPCS: 80053; 80184; 80185; 80307; 81001; 83735; 85025; 93005; 96361; 96365; 96375; J1165; J2060; J2560; J3475; J3480; J7030

== ENCOUNTER 2017-05-06 17:53 | Emergency (ER) | payer MEDICARE, OTHER ==
[~2017-05-06] VITALS: Ht 172.7 cm; Wt 127.0 kg
[~2017-05-06 17:53] MED LIST changes: +DILA100C PO; -DILANTIN; +METO50TA PO; -METOPROLOL TARTRATE; +PHENO60 PO
[2017-05-06 17:55] VITALS: BP 180/105; PULSE 79; RESP 16; TEMP 98.3; O2SAT 96
[2017-05-06] MEDS ORDERED: PHENO60 PO (20:06)
--- NOTE | 2017-05-06 20:11 | PD ---
HPI Chief Complaint: Medication Refill Request Time Seen by Provider: 20:01 Travel History International Travel<30 days: No Contact w/Intl Traveler<30days: No Traveled to known affect area: No History of Present Illness HPI 51-year-old black male presents emergency department requesting a refill of his phenobarbital. Patient has history of seizure disorder and hypertension. He states that his doctor had called in his prescription for his blood pressure medicine but neglected to call in his phenobarb are. He's been out for 2 days now. He has not had a seizure here recently. He denies any fever chills. No chest pain or shortness of breath. PFSH Past Medical History Narrative Medical Seizure disorder, hypertension Hx Anticoagulant Therapy: No Blood Disorders: No Heart Rhythm Problems: No Cancer: No Cardiovascular Problems: Yes High Cholesterol: No Chemotherapy: No Chest Pain: No Congestive Heart Failure: No Cerebrovascular Accident: No Diabetes: No Patient Takes Glucophage: No Diminished Hearing: No Endocrine: No Genitourinary: No Hypertension: Yes Immune Disorder: No Musculoskeletal: No Neurologic: Yes Psychiatric: No Reproductive: No Respiratory: No Migraines: No Seizures: Yes Past Surgical History Surgical History: No Previous Surgery Social History Alcohol Use: No Tobacco Use: No Substance Use: No Allergies-Medications (Allergen,Severity, Reaction): Coded Allergies: No Known Allergies (Verified , 07/18/16) Reported Meds & Prescriptions Reported Meds & Active Scripts Active Phenobarbital 64.8 Mg Tab 64.8 Mg PO Q8HR Reported Dilantin (Phenytoin Extended) 100 Mg Cap 100 Mg PO Q8HR Metoprolol Tartrate 50 Mg Tab 50 Mg PO BID Review of Systems General / Constitutional: No: Fever Eyes: No: Visual changes HENT: No: Headaches Cardiovascular: No: Chest Pain or Discomfort Respiratory: No: Shortness of Breath Gastrointestinal: No: Abdominal Pain Genitourinary: No: Dysuria Musculoskeletal: No: Pain Skin: No Rash Neurologic: No: Weakness Psychiatric: No: Depression Endocrine: No: Polydipsia Hematologic/Lymphatic: No: Easy Bruising Physical Exam Narrative GENERAL: This is a well-nourished, well-developed patient, in no apparent distress. SKIN: No rashes, ecchymoses or lesions. Warm and dry. HEAD: Atraumatic. Normocephalic. EYES: PERRL, EOMI, no discharge or injection. No scleral icterus. EARS: Clear NOSE: Nasal turbinates appear normal. THROAT: Mucosa pink and moist. Airway patent. NECK: Trachea midline. supple, moves head freely. LUNGS: Clear to auscultation. CV: Regular in rhythm. ABDOMEN: Soft nontender. EXT: No clubbing cyanosis or edema. Data Data Last Documented VS Vital Signs Date Time Temp Pulse Resp B/P (MAP) Pulse Ox O2 Delivery O2 Flow Rate FiO2 05/06/17 20:08 05/06/17 17:55 98.3 79 16 96 Room Air MDM Medical Decision Making Medical Screen Exam Complete: Yes Emergency Medical Condition: Yes Medical Record Reviewed: Yes Differential Diagnosis Differential diagnoses: Med refill, seizure disorder, malingering, noncompliance Narrative Course This is medication refill, seizure disorder Diagnosis Primary Impression: Medication refill Additional Impression: Seizure disorder Patient Instructions: General Instructions Additional Instructions: Rest. Medications as directed. Follow-up your doctor next week. Return to the ER for emergencies Med/Other Pt SpecificInfo: Prescription(s) given Scripts Phenobarbital (Phenobarbital) 64.8 Mg Tab 64.8 MG PO Q8HR for Control Seizures, #60 TAB 0 Refills Prov: Iván Ambriz MD 05/06/17 Disposition: 01 DISCHARGE HOME Condition: Stable Clem Roblero May 06, 2017 20:11
== END 2017-05-06 21:24 | disposition home or self-care (01) ==
LOC: NEPD 17:53
DX: Z76.0 Encounter for issue of repeat prescription (principal); G40.909 Epilepsy, unspecified, not intractable, without status epilepticus; I10 Essential (primary) hypertension; Z79.899 Other long term (current) drug therapy
CPT/HCPCS: 99281

== ENCOUNTER 2017-05-08 00:32 | Emergency (ER) | payer MEDICARE, OTHER ==
[~2017-05-08] VITALS: Ht 182.9 cm; Wt 150.0 kg
[2017-05-08 00:34] VITALS: BP 121/65; PULSE 110; RESP 14; TEMP 97.6; O2SAT 98
[2017-05-08 00:41] VITALS: O2SAT 97
--- NOTE | 2017-05-08 00:43 | PD ---
HPI Chief Complaint: Seizure Time Seen by Provider: 00:37 Travel History International Travel<30 days: No Contact w/Intl Traveler<30days: No Traveled to known affect area: No History of Present Illness HPI 51-year-old male presents to the emergency department for evaluation of seizure. Patient has history of seizure disorder and is prescribed Dilantin and phenobarbital. Patient has history of noncompliance. Patient was just seen in the emergency department 05/06/17 for prescription refill on his phenobarbital. Patient also has history of hypertension. According to EMS report patient was picked up in the backseat of a friend of the patient after having a witnessed generalized tonic-clonic seizure. Patient was found to be postictal and en route to the hospital started to show evidence of resolving his postictal state and then just prior to arrival to the emergency department patient had a 30-45 second generalized tonic clonic seizure with urinary incontinence. Patient had IV access at the time therefore the paramedics administered 2 mg of Ativan with cessation of seizure activity. Patient did have episode of vomiting according to the paramedics but area is suctioned and no concern for aspiration was reported. Blood sugar was 120. Patient presented with snoring respirations after Ativan and no active seizure. Paramedics report there was no injury while the patient was in their care and seizure that occurred in the car was not associated with any witnessed injury. [facility] Past Medical History Narrative Medical Seizure disorder medication noncompliance hypertension no tobacco use no alcohol use no substance use; nursing notes reviewed Hx Anticoagulant Therapy: No Blood Disorders: No Heart Rhythm Problems: No Cancer: No Cardiovascular Problems: Yes High Cholesterol: No Chemotherapy: No Chest Pain: No Congestive Heart Failure: No Cerebrovascular Accident: No Diabetes: No Diminished Hearing: No Endocrine: No Genitourinary: No Hypertension: Yes Immune Disorder: No Musculoskeletal: No Neurologic: Yes Psychiatric: No Reproductive: No Respiratory: No Migraines: No Seizures: Yes Social History Alcohol Use: No Tobacco Use: No Substance Use: No Allergies-Medications (Allergen,Severity, Reaction): Coded Allergies: No Known Allergies (Verified , 07/18/16) Reported Meds & Prescriptions Reported Meds & Active Scripts Active Phenobarbital 64.8 Mg Tab 64.8 Mg PO Q8HR Reported Dilantin (Phenytoin Extended) 100 Mg Cap 100 Mg PO Q8HR Metoprolol Tartrate 50 Mg Tab 50 Mg PO BID Review of Systems ROS Limitations: Clinical Condition (postictal), Altered Mental Status ( postictal) Except as stated in HPI: all other systems reviewed are Neg Physical Exam Narrative GENERAL: Well-developed well-nourished male with snoring respirations status post seizure and Ativan 2 mg IV SKIN: Warm and dry. No abrasions HEAD: Normocephalic. Atraumatic. EYES: No scleral icterus. Pupils equal round reactive to light No injection or drainage. NECK: Supple, trachea midline. No JVD or lymphadenopathy. CARDIOVASCULAR: Increased Regular rate and rhythm without murmurs, gallops, or rubs. RESPIRATORY: Breath sounds equal bilaterally. No accessory muscle use. GASTROINTESTINAL: Abdomen soft, non-tender, nondistended. MUSCULOSKELETAL: No cyanosis, or edema. BACK: Nontender without obvious deformity. No CVA tenderness. Data Data Last Documented VS Vital Signs Date Time Temp Pulse Resp B/P (MAP) Pulse Ox O2 Delivery O2 Flow Rate FiO2 05/08/17 00:41 97 Room Air 05/08/17 00:34 97.6 110 14 121/65 (83) Orders Orders Complete Blood Count With Diff (05/08/17 00:38) Basic Metabolic Panel (Bmp) (05/08/17 00:38) Alcohol (Ethanol) (05/08/17 00:38) Phenytoin (Dilantin) (05/08/17 00:38) Phenobarbital (05/08/17 00:38) Drug Screen, Random Urine (05/08/17 00:38) Electrocardiogram (05/08/17 ) Ct Brain W/O Iv Contrast(Rout) (05/08/17 ) Blood Glucose (05/08/17 00:38) Ecg Monitoring (05/08/17 00:38) Iv Access Insert/Monitor (05/08/17 00:38) Oximetry (05/08/17 00:38) Sodium Chloride 0.9% Flush (Ns Flush) (05/08/17 00:45) Urinalysis - C+S If Indicated (05/08/17 00:38) Sodium Chlor 0.9% 1000 Ml Inj (Ns 1000 M (05/08/17 00:45) Fosphenytoin Inj (Cerebyx Inj) (05/08/17 03:00) Phenobarbital (Phenobarbital) (05/08/17 03:00) Labs Laboratory Tests Test 05/08/17 00:45 White Blood Count 17.5 TH/MM3 Red Blood Count 5.49 MIL/MM3 Hemoglobin 15.0 GM/DL Hematocrit 44.4 % Mean Corpuscular Volume 80.9 FL Mean Corpuscular Hemoglobin 27.3 PG Mean Corpuscular Hemoglobin Concent 33.8 % Red Cell Distribution Width 14.4 % Platelet Count 244 TH/MM3 Mean Platelet Volume 8.6 FL Neutrophils (%) (Auto) 44.2 % Lymphocytes (%) (Auto) 39.0 % Monocytes (%) (Auto) 14.0 % Eosinophils (%) (Auto) 1.9 % Basophils (%) (Auto) 0.9 % Neutrophils # (Auto) 7.7 TH/MM3 Lymphocytes # (Auto) 6.8 TH/MM3 Monocytes # (Auto) 2.4 TH/MM3 Eosinophils # (Auto) 0.3 TH/MM3 Basophils # (Auto) 0.2 TH/MM3 CBC Comment AUTO DIFF Differential Total Cells Counted 100 Neutrophils % (Manual) 31 % Band Neutrophils % 2 % Lymphocytes % 50 % Monocytes % 15 % Eosinophils % 2 % Neutrophils # (Manual) 5.8 TH/MM3 Differential Comment FINAL DIFF MANUAL Platelet Estimate NORMAL Platelet Morphology Comment NORMAL Blood Urea Nitrogen 12 MG/DL Creatinine 1.12 MG/DL Random Glucose 135 MG/DL Calcium Level 9.0 MG/DL Sodium Level 138 MEQ/L Potassium Level 3.8 MEQ/L Chloride Level 103 MEQ/L Carbon Dioxide Level 15.2 MEQ/L Anion Gap 20 MEQ/L Estimat Glomerular Filtration Rate 84 ML/MIN Phenytoin (Dilantin) Level 3.0 MCG/ML Phenobarbital Level 10.5 MCG/ML Ethyl Alcohol Level LESS THAN 3 MG/DL [facility] Medical Decision Making Medical Screen Exam Complete: Yes Emergency Medical Condition: Yes Medical Record Reviewed: Yes Interpretation(s) EKG: Sinus tachycardia rate [address]-T wave changes no acute ST elevation Dilantin level: 3, subtherapeutic Phenobarbital level: 10.5 subtherapeutic Serum alcohol level: Less than 3, not elevated CBC was automated differential leukocytosis of 17,000 with right shift 50% lymphocytes Metabolic panel bicarbonate is 15.9 consistent with 2 witnessed seizures. CBC & BMP Diagram 05/08/17 00:45 Calcium Level 9.0 Vital Signs Date Time Temp Pulse Resp B/P (MAP) Pulse Ox O2 Delivery O2 Flow Rate FiO2 05/08/17 00:41 97 Room Air 05/08/17 00:34 97.6 110 14 121/65 (83) 98 CT brain noncontrast reading per radiologist Dr. Mukesh Orozco there is mucosal thickening in the maxillary sinuses normal appearance of the brain Differential Diagnosis Seizure, breakthrough seizure, status epilepticus, noncompliance, substance ingestion, TIA, CVA, uncontrolled hypertension Narrative Course Patient placed on monitoring analyst with continuous pulse oximetry nasal trumpet/ nasopharyngeal airway inserted to the right nostril without difficulty patient placed on supplemental oxygen with nasal cannula seizure precaution padding administered and patient also given one-time dose of Zofran 4 mg IV as episode of vomiting witnessed by paramedics prior to arrival to the emergency department patient has just received 2 mg of Ativan IV by EMS prior to arrival to the emergency department. Specimens collected and sent for resulting EKG performed shows sinus tachycardia no acute injury pattern At 3:30 AM GCS 15 patient reports he has plenty of Dilantin a home did fill his prescription for phenobarbital that he received yesterday and didn't take the medication but did not take her evening dose and has plenty of metoprolol at home. Patient states that he does at times have issues with compliance that she runs out of the medication and has difficulty getting the medication filled. Patient denies other complaints. No recent illness no recent injury. Diagnosis Primary Impression: Recurrent seizures Additional Impression: Subtherapeutic serum dilantin level Referrals: Primary Care Physician call for appointment Patient Instructions: General Instructions Disposition: 01 DISCHARGE HOME Condition: Stable Shani Hutchison MD May 08, 2017 00:43
[2017-05-08] MEDS ORDERED: SODIUM CHLOR 0.9% 1000 ML INJ 1,000 ML IV SCH (00:45)
[2017-05-08] MEDS ORDERED: SODIUM CHLORIDE 0.9% FLUSH 10 ML FLUSH IVF PRN (00:45)
[2017-05-08 01:01] LABS: AUTOMATED NEUTROPHIL # 7.7 TH/MM3 (1.8-7.7); BASOPHIL # 0.2 TH/MM3 (0-0.2); BASOPHIL % 0.9 % (0.0-2.0); EOSINOPHIL # 0.3 TH/MM3 (0-0.4); EOSINOPHIL % 1.9 % (0.0-4.0); HEMATOCRIT 44.4 % (39.0-51.0); LYMPHOCYTE # 6.8 TH/MM3 (1.0-4.8); MEAN CELL VOLUME 80.9 FL (80.0-100.0); MEAN CORPUSCULAR HEMOGLOBIN 27.3 PG (27.0-34.0); MEAN CORPUSCULAR HGB CONC 33.8 % (32.0-36.0); NEUT % 44.2 % (16.0-70.0); PLATELET COUNT 244 TH/MM3 (150-450); RED BLOOD COUNT 5.49 MIL/MM3 (4.50-5.90); RED CELL DISTRIBUTION WIDTH 14.4 % (11.6-17.2); WHITE BLOOD COUNT 17.5 TH/MM3 (4.0-11.0)
[2017-05-08 01:03] LABS: HEMO FLAGS AUTO DIFF
[2017-05-08 01:20] LABS: ALCOHOL LESS THAN 3 MG/DL (0-5); ANION GAP 20 MEQ/L (5-15); BICARBONATE 15.2 MEQ/L (21.0-32.0); BLOOD UREA NITROGEN 12 MG/DL (7-18); CHLORIDE 103 MEQ/L (98-107); GLOMERULAR FILTRATION RATE 84 ML/MIN (>89); POTASSIUM 3.8 MEQ/L (3.5-5.1); SODIUM (NA) 138 MEQ/L (136-145)
[2017-05-08 01:23] LABS: PHENOBARBITAL 10.5 MCG/ML (15.0-40.0)
[2017-05-08 01:54] LABS: BANDS 2 % (0-6); EOSINOPHILS 2 % (0-4); NEUTROPHIL # MANUAL DIFF 5.8 TH/MM3 (1.8-7.7); POLYS (SEG NEUTROPHILS) 31 % (16-70); SCAN/DIFF FINAL DIFF MANUAL; WBC DIFF SAMPLE 100
[2017-05-08 01:55] LABS: PLATELET ESTIMATE SMEAR NORMAL (NORMAL); PLATELET MORPHOLOGY NORMAL (NORMAL)
[2017-05-08] MEDS ORDERED: FOSPHENYTOIN INJ 1,500 MGPE in SODIUM CHLORIDE 0.9% INJ 100 ML IV ONE (03:00)
--- NOTE | 2017-05-08 05:19 | RADRPT ---
EXAM DATE/TIME: 05/08/2017 04:22 [place] COMPARISON: CT BRAIN W/O CONTRAST, July 03, 2016, 23:39. INDICATIONS : Altered mental status; possible seizure. RADIATION DOSE: 56.35 CTDIvol (mGy) MEDICAL HISTORY : Seizures. Hypertension. Cardiovascular disease SURGICAL HISTORY : None. ENCOUNTER: Initial ACUITY: 1 day PAIN SCALE: 0/10 LOCATION: cranial TECHNIQUE: Multiple contiguous axial images were obtained of the head. Using automated exposure control and adj ustment of the mA and/or kV according to patient size, radiation dose was kept as low as reasonably a chievable to obtain optimal diagnostic quality images. DICOM format image data is available electro nically for review and comparison. FINDINGS: CEREBRUM: The ventricles are normal for age. No evidence of midline shift, mass lesion, hemorrhage or acute in farction. No extra-axial fluid collections are seen. POSTERIOR FOSSA: The cerebellum and brainstem are intact. The 4th ventricle is midline. The cerebellopontine angle i s unremarkable. EXTRACRANIAL: The visualized portion of the orbits is intact. Bilateral maxillary sinus mucosal thickening. SKULL: The calvaria is intact. No evidence of skull fracture. CONCLUSION: 1. There is mucosal thickening in the maxillary sinuses. 2. Normal appearance of the brain. Mukesh Orozco MD on May 08, 2017 at 5:16 Board Certified Radiologist. This report was verified electronically.
--- NOTE | 2017-05-08 12:30 | EKG ---
Date Performed: 05/08/2017 Time Performed: 00:38:02 PTAGE: 51 years EKG: SINUS TACHYCARDIA POSSIBLE LEFT ATRIAL ENLARGEMENT NONSPECIFIC ST & T-WAVE ABNORMALITY ABNO RMAL RHYTHM ECG Compared to PREVIOUS TRACING , the ST & T changes are somewhat more prominent, otherwise no significa nt change. PREVIOUS TRACIN07/18/2016 11.36 DOCTOR: Fritz Fitzpatrick Interpretating Date/Time 05/08/2017 12:28:38
== END 2017-05-08 05:57 | disposition home or self-care (01) ==
LOC: NEPC 00:32
DX: G40.909 Epilepsy, unspecified, not intractable, without status epilepticus (principal); R00.0 Tachycardia, unspecified; R94.31 Abnormal electrocardiogram [ECG] [EKG]; R11.10 Vomiting, unspecified; I10 Essential (primary) hypertension; Z79.899 Other long term (current) drug therapy
CPT/HCPCS: 70450; 80048; 80184; 80185; 80307; 85007; 85027; 93005; 96374; 99285; J7030; Q2009

== ENCOUNTER 2017-10-23 00:16 | Emergency (ER) | payer MEDICARE, OTHER ==
[~2017-10-23] VITALS: Ht 182.9 cm; Wt 115.0 kg
[2017-10-23 00:19] VITALS: BP 146/80; PULSE 97; RESP 22; TEMP 98.9; O2SAT 92
[2017-10-23 00:23] VITALS: RESP 24; O2SAT 95
[2017-10-23] MEDS ORDERED: SODIUM CHLORIDE 0.9% FLUSH 10 ML FLUSH IVF PRN (00:30)
[2017-10-23 00:33] VITALS: BP 148/79; PULSE 97; RESP 18; O2SAT 96
[2017-10-23 01:16] LABS: AUTOMATED NEUTROPHIL # 4.3 TH/MM3 (1.8-7.7); BASOPHIL % 0.7 % (0.0-2.0); EOSINOPHIL # 0.2 TH/MM3 (0-0.4); EOSINOPHIL % 2.2 % (0.0-4.0); HEMOGLOBIN 14.5 GM/DL (13.0-17.0); LYMPHOCYTE # 1.8 TH/MM3 (1.0-4.8); MEAN CELL VOLUME 76.3 FL (80.0-100.0); MEAN CORPUSCULAR HEMOGLOBIN 27.1 PG (27.0-34.0); MEAN CORPUSCULAR HGB CONC 35.5 % (32.0-36.0); MEAN PLATELET VOLUME 8.7 FL (7.0-11.0); MONO % 11.9 % (0.0-8.0); MONOCYTE # 0.9 TH/MM3 (0-0.9); NEUT % 60.2 % (16.0-70.0); PLATELET COUNT 213 TH/MM3 (150-450); RED BLOOD COUNT 5.37 MIL/MM3 (4.50-5.90); RED CELL DISTRIBUTION WIDTH 14.8 % (11.6-17.2); WHITE BLOOD COUNT 7.2 TH/MM3 (4.0-11.0)
[2017-10-23 01:35] LABS: ALBUMIN 3.4 GM/DL (3.4-5.0); ALT (GPT) 53 U/L (12-78); AST (GOT) 55 U/L (15-37); BICARBONATE 19.8 MEQ/L (21.0-32.0); BLOOD UREA NITROGEN 8 MG/DL (7-18); CALCIUM 8.2 MG/DL (8.5-10.1); CHLORIDE 100 MEQ/L (98-107); CREATININE 0.93 MG/DL (0.60-1.30); GLOMERULAR FILTRATION RATE 104 ML/MIN (>89); GLUCOSE,RANDOM 107 MG/DL (74-106); SODIUM (NA) 136 MEQ/L (136-145)
[2017-10-23 01:38] LABS: ALKALINE PHOSPHATASE 153 U/L (45-117); CARBAMAZEPINE (TEGRETOL) LESS THAN 0.5 MCG/ML (4.0-12.0); PHENYTOIN (DILANTIN) 2.7 MCG/ML (10.0-20.0); TOTAL BILIRUBIN ADULT 0.4 MG/DL (0.2-1.0); TOTAL PROTEIN 8.9 GM/DL (6.4-8.2)
[2017-10-23] MEDS ORDERED: KEPP750T PO (01:41)
[2017-10-23 01:50] VITALS: BP 160/76; PULSE 86; RESP 18; O2SAT 97
[2017-10-23 02:02] LABS: BILIRUBIN, URINE NEG (NEG); BLOOD, URINE NEG (NEG); GLUCOSE,URINE NEG (NEG); HYALINE CAST, URINE 3 /lpf (RARE); KETONE, URINE TRACE mg/dL (NEG); NITRITE,URINE NEG (NEG); URINE COLOR YELLOW (YELLW/STRAW); URINE LEUKOCYTE ESTERASE NEG (NEG)
--- NOTE | 2017-10-23 02:25 | RADRPT ---
EXAM DATE: 10/23/2017 2:13 AM EDT AGE/SEX: 52 years / Male INDICATIONS: Seizures with altered mental status. CLINICAL DATA: This is the patient's initial encounter. Patient reports that signs and symptoms have been present for 1 day and indicates a pain score of 0/10. MEDICAL/SURGICAL HISTORY: Hypertension. Seizures None. RADIATION DOSE: 56.40 CTDI (mGy) ;Tabletop exam COMPARISON: [facility] [place] B[place]IN W/O CONTRAST, 05/08/2017. . TECHNIQUE: CT of the head without contrast. Using automated exposure control and adjustment of the mA and/or kV according to patient size, radiation dose was kept as low as reasonably achievable to ob tain optimal diagnostic quality images. FINDINGS: The Cerebrum: The ventricles are normal for age. No evidence of midline shift, mass lesion, hemorrh age or acute infarction. No extraaxial fluid collections are seen. Posterior Fossa: The cerebellum and brainstem are intact. The 4th ventricle is midline. The cerebe llopontine angle is unremarkable. Extracranial: Mucoperiosteal thickening seen of the maxillary air cells, improved on the right worse on the left. Skull: The calvaria is intact. No evidence of skull fracture. CONCLUSION: 1. No acute intracranial abnormality demonstrated. 2. Chronic bilateral maxillary sinus disease. Electronically signed by: Mann Farmer MD 10/23/2017 2:23 AM EDT
[2017-10-23 03:02] VITALS: BP 155/70; PULSE 98; RESP 18; O2SAT 97
--- NOTE | 2017-10-23 04:50 | PD ---
HPI Chief Complaint: Seizure Time Seen by Provider: 00:19 Travel History International Travel<30 days: No (FARIBA) Contact w/Intl Traveler<30days: No (FARIBA) Traveled to known affect area: No (FARIBA) History of Present Illness HPI 52-year-old male with history of seizures has recurrent seizure witnessed by friends in a parking lot. Patient arrives postictal after receiving 2 of [facility] prehospital. He provides no history at this time [facility] Past Medical History Hx Anticoagulant Therapy: No Blood Disorders: No Heart Rhythm Problems: No Cancer: No Cardiovascular Problems: Yes High Cholesterol: No Chemotherapy: No Chest Pain: No Congestive Heart Failure: No Cerebrovascular Accident: No Diabetes: No Diminished Hearing: No Endocrine: No Gastrointestinal Disorders: No Genitourinary: No Headaches: No Hypertension: Yes Immune Disorder: No Implanted Vascular Access Dvce: No Musculoskeletal: No Neurologic: Yes Psychiatric: No Reproductive: No Respiratory: No Migraines: No Seizures: Yes Social History Alcohol Use: No (FARIBA) Tobacco Use: No (FARIBA) Substance Use: No (FARIBA) Allergies-Medications (Allergen,Severity, Reaction): Coded Allergies: No Known Allergies (Verified , 07/18/16) Reported Meds & Prescriptions Reported Meds & Active Scripts Active Phenobarbital 64.8 Mg Tab 64.8 Mg PO Q8HR Reported Keppra (Levetiracetam) 750 Mg Tab 750 Mg PO BID Dilantin (Phenytoin Extended) 100 Mg Cap 100 Mg PO Q8HR Metoprolol Tartrate 50 Mg Tab 50 Mg PO BID Review of Systems ROS Limitations: Altered Mental Status Physical Exam Narrative GENERAL: 52-year-old male who is postictal SKIN: Focused skin assessment warm/dry. HEAD: Lip trauma from biting, nothing suturable EYES: Pupils equal and round. No scleral icterus. No injection or drainage. ENT: No nasal bleeding or discharge. Mucous membranes pink and moist. NECK: Trachea midline. CARDIOVASCULAR: Regular rate and rhythm. No murmur appreciated. RESPIRATORY: No accessory muscle use. Clear to auscultation. Breath sounds equal bilaterally. GASTROINTESTINAL: Abdomen soft, non-tender, nondistended. Hepatic and splenic margins not palpable. MUSCULOSKELETAL: No obvious injury or deformity. NEUROLOGICAL: Postictal answers "yup" to all questions. Data Data Last Documented VS Vital Signs Date Time Temp Pulse Resp B/P (MAP) Pulse Ox O2 Delivery O2 Flow Rate FiO2 5/27/18 03:02 98 18 155/70 (98) 97 Room Air 10/23/17 01:50 2.00 10/23/17 00:19 98.9 Orders Orders Complete Blood Count With Diff (10/23/17 00:19) Alcohol (Ethanol) (10/23/17 00:19) Phenytoin (Dilantin) (10/23/17 00:19) Carbamazepine (Tegretol) (10/23/17 00:19) Phenobarbital (10/23/17 00:19) Valproic Acid (Depakene) (10/23/17 00:19) Drug Screen, Random Urine (10/23/17 00:19) Blood Glucose (10/23/17:19) Ecg Monitoring (10/23/17:19) Iv Access Insert/Monitor (10/23/17 00:19) Oximetry (10/23/17 00:19) Comprehensive Metabolic Panel (10/23/17 00:) Sodium Chloride 0.9% Flush (Ns Flush) (10/23/17 00:30) Urinalysis - C+S If Indicated (10/23/17 00:19) Ct Brain W/O Iv Contrast(Rout) (10/23/17 ) Valproic Acid (Depakene) (10/23/17 05:00) Labs Laboratory Tests Test 10/23/17 00:22 10/23/17 01:36 White Blood Count 7.2 TH/MM3 Red Blood Count 5.37 MIL/MM3 Hemoglobin 14.5 GM/DL Hematocrit 41.0 % Mean Corpuscular Volume 76.3 FL Mean Corpuscular Hemoglobin 27.1 PG Mean Corpuscular Hemoglobin Concent 35.5 % Red Cell Distribution Width 14.8 % Platelet Count 213 TH/MM3 Mean Platelet Volume 8.7 FL Neutrophils (%) (Auto) 60.2 % Lymphocytes (%) (Auto) 25.0 % Monocytes (%) (Auto) 11.9 % Eosinophils (%) (Auto) 2.2 % Basophils (%) (Auto) 0.7 % Neutrophils # (Auto) 4.3 TH/MM3 Lymphocytes # (Auto) 1.8 TH/MM3 Monocytes # (Auto) 0.9 TH/MM3 Eosinophils # (Auto) 0.2 TH/MM3 Basophils # (Auto) 0.0 TH/MM3 CBC Comment DIFF FINAL Differential Comment Blood Urea Nitrogen 8 MG/DL Creatinine 0.93 MG/DL Random Glucose 107 MG/DL Total Protein 8.9 GM/DL Albumin 3.4 GM/DL Calcium Level 8.2 MG/DL Alkaline Phosphatase 153 U/L Aspartate Amino Transf (AST/SGOT) 55 U/L Alanine Aminotransferase (ALT/SGPT) 53 U/L Total Bilirubin 0.4 MG/DL Sodium Level 136 MEQ/L Potassium Level 3.4 MEQ/L Chloride Level 100 MEQ/L Carbon Dioxide Level 19.8 MEQ/L Anion Gap 16 MEQ/L Estimat Glomerular Filtration Rate 104 ML/MIN Phenytoin (Dilantin) Level 2.7 MCG/ML Valproic Acid (Depakene) Level 4 MCG/ML Carbamazepine (Tegretol) Level LESS THAN 0.5 MCG/ML Phenobarbital Level 19.7 MCG/ML Ethyl Alcohol Level LESS THAN 3 MG/DL Urine Color YELLOW Urine Turbidity CLEAR Urine pH 6.0 Urine Specific [place] 1.011 Urine Protein 30 mg/dL Urine Glucose (UA) NEG mg/dL Urine Ketones TRACE mg/dL Urine Occult Blood NEG Urine Nitrite NEG Urine Bilirubin NEG Urine Urobilinogen LESS THAN 2.0 MG/DL Urine Leukocyte Esterase NEG Urine RBC LESS THAN 1 /hpf Urine WBC LESS THAN 1 /hpf Urine Hyaline Casts 3 /lpf Microscopic Urinalysis Comment CULT NOT INDICATED Urine Opiates Screen NEG Urine Barbiturates Screen POS Urine Amphetamines Screen NEG Urine Benzodiazepines Screen POS Urine Cocaine Screen NEG Urine Cannabinoids Screen NEG MDM Medical Decision Making Medical Screen Exam Complete: Yes Emergency Medical Condition: Yes Differential Diagnosis Recurrent seizure Narrative Course Patient was seen and evaluated in the emergency department. Initially provided no history and was unable to speak clearly. Within 30-50 minutes he began answering all questions and provided medications as well. CT was negative. His drug levels found to be subtherapeutic and the patient admits to not taking his dose this evening, and possibly yesterday. Patient was given a dose of valproic acid and asked to take his medications upon arrival home He was discharged home. Diagnosis Primary Impression: Seizure Patient Instructions: General Instructions, Recurrent Seizures in Adults (ED) Disposition: DISCHARGE HOME Condition: Marcelina Gill DO October 23, 2017 04:50
[2017-10-23] MEDS ORDERED: VALPROIC ACID 250 MG CAP PO ONE (05:00)
--- NOTE | 2017-10-23 13:29 | EKG ---
Date Performed: 10/23/2017 Time Performed: 00:19:51 PTAGE: 52 years EKG: Sinus rhythm POSSIBLE LEFT ATRIAL ENLARGEMENT NONSPECIFIC T-WAVE ABNORMALITY BORDERLINE ECG Compared to PREVIOUS TRACING , there is some improvement in the ST-T changes and the heart rate is sl ower. PREVIOUS TRACIN05/08/2017 00.38.02 DOCTOR: Fritz Fitzpatrick Interpretating Date/Time 10/23/2017 13:29:11
== END 2017-10-23 05:51 | disposition home or self-care (01) ==
LOC: NEPC 00:16
DX: R56.9 Unspecified convulsions (principal); I10 Essential (primary) hypertension
CPT/HCPCS: 70450; 80053; 80156; 80164; 80184; 80185; 80307; 81001; 85025; 93005; 99284